=== PATIENT | female | born 1995 | race Caucasian/White ===

== ENCOUNTER → 2018-06-21 | Outpatient (CLI) | payer OTHER ==
[~2018-06-21] MED LIST: ALBU90OI INH; AMOX500 PO; AZIT250 PO; Augmentin 875-1 EACH PO; CEPH500 PO; CODACE30 PO; CODGUAEL PO; HYDACE5325 PO; METF500 PO; MONDOXYNE NL100 MG PO; PENVK500 PO; PROM25 PO; RXCODACET PO; Ultram50 MG PO
[2018-06-21 14:14] LABS: Adenovirus F 40/41 Not Detected (NOT DETECT); Astrovirus Not Detected (NOT DETECT); Cryptosporidium Not Detected (NOT DETECT); Cyclospora Cayetanensis Not Detected (NOT DETECT); E. Coli O157 Not Detected (NOT DETECT); Entamoeba Histolytica Not Detected (NOT DETECT); Enteroaggregative E. coli-EAEC Not Detected (NOT DETECT); Enterotoxigenic E. coli-ETEC Not Detected (NOT DETECT); Giardia Lamblia Not Detected (NOT DETECT); Norovirus GI/GII Not Detected (NOT DETECT); Plesiomonas Shigelloides Not Detected (NOT DETECT); Rotavirus A Not Detected (NOT DETECT); Salmonella Sp Not Detected (NOT DETECT); Sapovirus Not Detected (NOT DETECT); Shiga Toxin-prod E. coli-STEC Not Detected (NOT DETECT); Shigella/Enteroin E. coli-EIEC Not Detected (NOT DETECT); Vibrio Cholerae Not Detected (NOT DETECT); Vibrio Sp Not Detected (NOT DETECT); Yersinia Enterocolitica Not Detected (NOT DETECT)
[2018-06-21 17:28] LABS: Campylobacter Sp Detected (NOT DETECT); Enteropathogenic E. coli-EPEC Detected (NOT DETECT)
== END | disposition home or self-care (01) ==
LOC: LAB EV 13:00
PROVIDERS: General Practice
DX: E86.0 Dehydration (principal)
CPT/HCPCS: 87507

== ENCOUNTER 2018-06-22 23:12 | Emergency (ER) | payer OTHER ==
[~2018-06-22] VITALS: Ht 170.2 cm; Wt 131.5 kg
[~2018-06-22 23:12] MED LIST changes: -AZIT250 PO
[2018-06-22] MEDS ORDERED: AZIT250 PO (23:23)
[2018-06-23 00:25] LABS: Calcium, Ionized (POC) 1.15 mmol/L (1.10-1.46); Chloride (POC) 103 mmol/L (98-108); Creatinine (POC) 0.6 mg/dL (0.6-1.0); Glucose (ISTAT POC) 109 mg/dL (70-99); Hemoglobin (POC) 11.9 g/dL (12.0-16.0); Potassium (POC) 3.6 mmol/L (3.5-5.5); Sodium (POC) 138 mmol/L (135-148); Total CO2 (POC) 25 mmol/L (21-32)
== END 2018-06-23 01:06 | disposition home or self-care (01) ==
LOC: ER 23:12
PROVIDERS: Emergency Medicine
DX: A04.4 Other intestinal Escherichia coli infections (principal); E87.6 Hypokalemia; E86.0 Dehydration; F17.200 Nicotine dependence, unspecified, uncomplicated; J45.909 Unspecified asthma, uncomplicated
CPT/HCPCS: 36415; 80047; 85014; 96360; 99284-25; J7030

== ENCOUNTER → 2019-01-29 | Outpatient (CLI) | payer OTHER ==
[~2019-01-29] MED LIST changes: +AZIT250 PO
[2019-01-29 12:50] LABS: BASOPHILS ABSOLUTE AUTO 0.05 K/mm3 (0.00-0.23); BASOPHILS PERCENT AUTO 1 % (0-2); EOSINOPHILS PERCENT AUTO 1 % (0-6); Hematocrit 42.4 % (33.0-51.0); Hemoglobin 14.7 g/dL (11.5-16.0); IMMATURE GRAN ABSOLUTE AUTO 0.02 K/mm3 (0.00-0.10); IMMATURE GRAN PERCENT AUTO 0 % (0-1); LYMPHOCYTES ABSOLUTE AUTO 2.18 K/mm3 (0.84-5.20); LYMPHOCYTES PERCENT AUTO 28 % (21-46); MONOCYTES ABSOLUTE AUTO 0.46 K/mm3 (0.16-1.47); MONOCYTES PERCENT AUTO 6 % (4-13); Mean Corpuscular HGB 31.3 pg (26.0-34.0); Mean Corpuscular HGB Conc 34.7 g/dL (31.5-36.5); Mean Corpuscular Volume 90 fL (80-100); Mean Platelet Volume 9.3 fL (9.1-12.4); NEUTROPHILS ABSOLUTE AUTO 4.92 K/mm3 (1.96-9.15); NEUTROPHILS PERCENT AUTO 64 % (41-73); Platelet Count 271 K/mm3 (150-400); RDW Coefficient Variation 12.7 % (11.7-14.2); RDW Standard Deviation 42.2 fL (35.1-46.3); White Blood Cell Count 7.73 K/mm3 (4.00-11.30)
== END | disposition home or self-care (01) ==
LOC: LAB SHORT 12:45 → LAB EV 12:45
PROVIDERS: Physician Assistant
DX: Z33.1 Pregnant state, incidental (principal)
CPT/HCPCS: 84702; 85025

== ENCOUNTER → 2019-03-23 | Outpatient (CLI) | payer OTHER | END | disposition home or self-care (01) | LOC: LAB SHORT 10:48 → LAB EV 10:48 | DX: N39.0 Urinary tract infection, site not specified (principal) | CPT/HCPCS: 87086 ==

== ENCOUNTER 2019-09-16 16:00 | Inpatient (IN) | payer OTHER ==
[~2019-09-16] VITALS: Ht 170.2 cm; Wt 151.0 kg
[2019-09-16] MEDS ORDERED: INSULANPEN SC (16:57)
[2019-09-16 17:04] LABS: BASOPHILS ABSOLUTE AUTO 0.01 K/mm3 (0.00-0.23); BASOPHILS PERCENT AUTO 0 % (0-2); EOSINOPHILS ABSOLUTE AUTO 0.05 K/mm3 (0.00-0.68); EOSINOPHILS PERCENT AUTO 1 % (0-6); Hematocrit 36.7 % (33.0-51.0); Hemoglobin 12.4 g/dL (11.5-16.0); IMMATURE GRAN ABSOLUTE AUTO 0.03 K/mm3 (0.00-0.10); IMMATURE GRAN PERCENT AUTO 0 % (0-1); LYMPHOCYTES ABSOLUTE AUTO 1.49 K/mm3 (0.84-5.20); LYMPHOCYTES PERCENT AUTO 17 % (21-46); MONOCYTES ABSOLUTE AUTO 0.56 K/mm3 (0.16-1.47); MONOCYTES PERCENT AUTO 6 % (4-13); Mean Corpuscular HGB 30.2 pg (26.0-34.0); Mean Corpuscular HGB Conc 33.8 g/dL (31.5-36.5); Mean Corpuscular Volume 90 fL (80-100); Mean Platelet Volume 9.7 fL (9.1-12.4); NEUTROPHILS PERCENT AUTO 76 % (41-73); Platelet Count 259 K/mm3 (150-400); RDW Coefficient Variation 13.1 % (11.7-14.2); RDW Standard Deviation 43.1 fL (35.1-46.3); White Blood Cell Count 8.74 K/mm3 (4.00-11.30)
[2019-09-17 21:26] LABS: PCO2 Cord - Arterial 82.3 mmHg (40-50); PO2 Cord - Arterial < 13 mmHg (16-20); pH Cord - Arterial 7.07 (7.28-7.35)
[2019-09-17 21:28] LABS: PCO2 Cord - Venous 67.8 mmHg (40-50); PO2 Cord - Venous < 13 mmHg (28-32); pH Umbilical Cord - Venous 7.12 (7.26-7.35)
--- NOTE | 2019-09-18 04:34 | NUR ---
CALLED TO FB FOR CSECTION. STBY DURING CSECTION. BABY DELIVERED AND BROUGHT TO WARMER. DRY/STIMULATION DELIVERED. BABY SLOW TO CRY, PLACED NEOPUFF ON BABY WHEN BABY STARTED TO CRY. STIMULATION CONTINUED. WITH BABY FOR THE FIRST 5 MINUTES THEN BABY WAS WRAPPED IN A WARM BLANKET BY RN AND TAKEN TO MOM. SILVER RT ALSO STANDING BY. DISMISSED BY RN.
[2019-09-18 05:31] LABS: BASOPHILS ABSOLUTE AUTO 0.02 K/mm3 (0.00-0.23); BASOPHILS PERCENT AUTO 0 % (0-2); EOSINOPHILS PERCENT AUTO 0 % (0-6); Hematocrit 29.9 % (33.0-51.0); Hemoglobin 10.1 g/dL (11.5-16.0); IMMATURE GRAN ABSOLUTE AUTO 0.06 K/mm3 (0.00-0.10); IMMATURE GRAN PERCENT AUTO 0 % (0-1); LYMPHOCYTES ABSOLUTE AUTO 1.24 K/mm3 (0.84-5.20); LYMPHOCYTES PERCENT AUTO 9 % (21-46); MONOCYTES ABSOLUTE AUTO 0.91 K/mm3 (0.16-1.47); MONOCYTES PERCENT AUTO 7 % (4-13); Mean Corpuscular HGB 30.4 pg (26.0-34.0); Mean Corpuscular HGB Conc 33.8 g/dL (31.5-36.5); Mean Corpuscular Volume 90 fL (80-100); Mean Platelet Volume 9.6 fL (9.1-12.4); NEUTROPHILS ABSOLUTE AUTO 11.35 K/mm3 (1.96-9.15); NEUTROPHILS PERCENT AUTO 84 % (41-73); Platelet Count 207 K/mm3 (150-400); RDW Coefficient Variation 13.1 % (11.7-14.2); RDW Standard Deviation 43.2 fL (35.1-46.3); Red Blood Cell Count 3.32 M/mm3 (3.80-5.20); White Blood Cell Count 13.58 K/mm3 (4.00-11.30)
--- NOTE | 2019-09-18 09:22 | NUR ---
ASSUMED CARE STABLE PT RESTING COMFORTABLY IN BED, FAMILY AT BEDSIDE, CARING FOR NB WELL BREAST FEEDING GOING WELL
--- NOTE | 2019-09-18 15:16 | NUR ---
PT UP TO SHOWER, VOIDED WITHOUT DIFFICULTY, TOLERATED WELL
--- NOTE | 2019-09-18 15:25 | NUR ---
REPT TO Venu CARO RN
--- NOTE | 2019-09-18 15:32 | NUR ---
Fresh ice water given.
[2019-09-19 05:43] LABS: BASOPHILS ABSOLUTE AUTO 0.01 K/mm3 (0.00-0.23); BASOPHILS PERCENT AUTO 0 % (0-2); EOSINOPHILS ABSOLUTE AUTO 0.03 K/mm3 (0.00-0.68); EOSINOPHILS PERCENT AUTO 0 % (0-6); Hematocrit 28.8 % (33.0-51.0); Hemoglobin 9.6 g/dL (11.5-16.0); IMMATURE GRAN ABSOLUTE AUTO 0.08 K/mm3 (0.00-0.10); IMMATURE GRAN PERCENT AUTO 1 % (0-1); LYMPHOCYTES ABSOLUTE AUTO 1.48 K/mm3 (0.84-5.20); LYMPHOCYTES PERCENT AUTO 11 % (21-46); MONOCYTES ABSOLUTE AUTO 1.09 K/mm3 (0.16-1.47); MONOCYTES PERCENT AUTO 8 % (4-13); Mean Corpuscular HGB 30.4 pg (26.0-34.0); Mean Corpuscular HGB Conc 33.3 g/dL (31.5-36.5); Mean Corpuscular Volume 91 fL (80-100); Mean Platelet Volume 9.7 fL (9.1-12.4); NEUTROPHILS ABSOLUTE AUTO 10.58 K/mm3 (1.96-9.15); NEUTROPHILS PERCENT AUTO 80 % (41-73); Platelet Count 197 K/mm3 (150-400); RDW Coefficient Variation 13.7 % (11.7-14.2); RDW Standard Deviation 45.3 fL (35.1-46.3); Red Blood Cell Count 3.16 M/mm3 (3.80-5.20); White Blood Cell Count 13.27 K/mm3 (4.00-11.30)
--- NOTE | 2019-09-19 10:11 | NUR ---
CONSULT. BABY IS SEMI AWAKE. INSTRUCT/DEMO SELF EBM AND MOM ABLE TO RETURN DEMO. BABY ATTEMPTED LATCH, THEN QUIT ROOTING, BECAME SPITTY AND GAGGING. WHEN AIRWAY CLEARED HE RETURNED TO SLEEP. INSTRUCT IN CHANGES TO EXPECT DURING THE FIRST WEEK WITH FEEDINGS AND WITH BABY. WILL TRY AND VISIT WHEN AWAKE LATER TODAY. QUESTIONS ANSWERED.
[2019-09-19] MEDS ORDERED: Percocet 5-3251 EACH PO (18:26)
[2019-09-19] MEDS ORDERED: IBUP800 PO (18:26)
--- NOTE | 2019-09-19 19:55 | NUR ---
DC NOTE VSS. PAIN WELL CONTROLLED W/ ORAL MEDICATIONS AND FINAL ABX FINISHED. DC TEACHING COMPLETED. PT HAS NO OTHER QUESTIONS AT THIS TIME. CARING FOR SELF AND NB INDEPENDENTLY. AMBULATED OFF UNIT W/ NB AND SO.
--- NOTE | 2019-09-20 08:59 | NUR ---
09/20/19 0859 Brittnee Peralta VERIFICATIONS: EDIT CHART.
== END 2019-09-19 20:00 | disposition home or self-care (01) | DRG 788 ==
LOC: BC 16:00 → OBS 16:00 → BC 16:26
PROVIDERS: Obstetrics & Gynecology; ADMIT Advanced Practice Midwife
PROC: 3E0P7VZ Introduction of Hormone into Female Reproductive, Via Natural or Artificial Opening (ICD-10-PCS; 2019-09-16)
PROC: 10907ZC Drainage of Amniotic Fluid, Therapeutic from Products of Conception, Via Natural or Artificial Opening (ICD-10-PCS; 2019-09-17)
PROC: 3E033VJ Introduction of Other Hormone into Peripheral Vein, Percutaneous Approach (ICD-10-PCS; 2019-09-17)
PROC: 10D00Z1 Extraction of Products of Conception, Low, Open Approach (ICD-10-PCS; principal; 2019-09-17 20:00)
DX: O32.4XX0 Maternal care for high head at term, not applicable or unspecified (principal); O62.1 Secondary uterine inertia; O24.424 Gestational diabetes mellitus in childbirth, insulin controlled; Z3A.39 39 weeks gestation of pregnancy; Z37.0 Single live birth; O34.03 Maternal care for unspecified congenital malformation of uterus, third trimester; Q51.3 Bicornate uterus; O99.214 Obesity complicating childbirth
CPT/HCPCS: 36415; 51702; 82803; 82947; 85025; 86850; 86900; 86901; 90471; 90686; 90707; J0330; J0690; J1885; J2001; J2405; J2590; J2765; J3010; J7030; J7120

== ENCOUNTER → 2020-01-31 | Outpatient (CLI) | payer OTHER ==
[~2020-01-31] MED LIST changes: +IBUP800 PO; +INSULANPEN SC; +Percocet 5-3251 EACH PO
[2020-01-31 14:12] LABS: BASOPHILS ABSOLUTE AUTO 0.07 K/mm3 (0.00-0.23); BASOPHILS PERCENT AUTO 1 % (0-2); EOSINOPHILS ABSOLUTE AUTO 0.39 K/mm3 (0.00-0.68); EOSINOPHILS PERCENT AUTO 4 % (0-6); Hematocrit 41.7 % (33.0-51.0); Hemoglobin 13.7 g/dL (11.5-16.0); IMMATURE GRAN ABSOLUTE AUTO 0.03 K/mm3 (0.00-0.10); IMMATURE GRAN PERCENT AUTO 0 % (0-1); LYMPHOCYTES ABSOLUTE AUTO 2.47 K/mm3 (0.84-5.20); LYMPHOCYTES PERCENT AUTO 23 % (21-46); MONOCYTES ABSOLUTE AUTO 0.51 K/mm3 (0.16-1.47); MONOCYTES PERCENT AUTO 5 % (4-13); Mean Corpuscular HGB Conc 32.9 g/dL (31.5-36.5); Mean Corpuscular Volume 85 fL (80-100); Mean Platelet Volume 9.2 fL (9.1-12.4); NEUTROPHILS PERCENT AUTO 67 % (41-73); Platelet Count 297 K/mm3 (150-400); RDW Coefficient Variation 15.2 % (11.7-14.2); RDW Standard Deviation 46.8 fL (35.1-46.3); White Blood Cell Count 10.67 K/mm3 (4.00-11.30)
[2020-01-31 14:24] LABS: Alanine Aminotransfer (ALT/SGP 21 U/L (12-78); Albumin, Blood 3.9 g/dL (3.4-5.0); Alk Phos 115 U/L (40-126); Anion Gap 9 mmol/L (6-16); Aspartate Aminotrans (AST/SGOT 16 U/L (12-37); Bilirubin, Total 0.2 mg/dL (0.1-1.0); Blood Urea Nitrogen 14 mg/dL (8-24); Bun/Creatinine Ratio 17.9 (12.0-20.0); CO2, Blood 27 mmol/L (21-32); Calcium, Blood 8.8 mg/dL (8.5-10.1); Chloride, Blood 103 mmol/L (98-108); Creatinine, Blood 0.78 mg/dL (0.40-1.00); Glomerular Filtration Rate >60 (60-); Glucose, Blood 93 mg/dL (70-99); Potassium, Blood 4.2 mmol/L (3.5-5.5); Sodium, Blood 139 mmol/L (136-145); Total Protein, Blood 7.9 g/dL (6.4-8.2)
== END | disposition home or self-care (01) ==
LOC: LAB EV 14:08 → LAB SHORT 14:08
PROVIDERS: Internal Medicine
DX: R10.30 Lower abdominal pain, unspecified (principal)
CPT/HCPCS: 80053; 85025